=== PATIENT | female | born 1950 | race Asian ===

== ENCOUNTER → 2016-02-26 | Outpatient (CLI) | payer MEDICARE ==
--- NOTE | 2016-02-26 12:11 | REP ---
Right knee MRI study without contrast: History: Right knee pain. Comparison right knee radiographs are from January 21, 2016. Technique: Sagittal, axial and coronal imaging planes were utilized for T1, proton density and T2-weighted scans obtained in the usual fashion with without fat saturation. MRI findings: There is a moderate to large sized Parr's cyst in the posteromedial popliteal soft tissues. A moderate sized joint effusion is visible in the suprapatellar bursa. Cortical and medullary bone signal intensity are normal. There is no evidence of occult fracture. Anterior and posterior cruciate ligaments have an intact appearance. The patellar and quadriceps tendons are unremarkable. There is no evidence of medial or lateral collateral ligament disruption. There is a focal increase signal intensity at the inferior articular margins of posterior body of the medial meniscus consistent with a posterior body medial meniscal tear. No displaced meniscal material is seen. No lateral meniscal tear is seen. There is some anteromedial subcutaneous edema at the joint line which may reflect soft tissue contusion. There is a edema tracking posteriorly and inferiorly from the Parr's cyst. No vascular abnormality is seen. Impression: 1. Joint effusion and moderate to large multiloculated Parr's cyst with some surrounding edema. Question dissecting Parr's cyst. 2. Soft tissue edema anteriorly and medially at the joint line question soft tissue edema, contusion. 3. Small focal tear posterior body medial meniscus. Signed by Sherif Henao MD 02/26/2016 02:06 P
== END ==
LOC: M RAD 09:43
PROVIDERS: ATTEND Family Medicine
DX: M25.461 Effusion, right knee (principal); M71.21 Synovial cyst of popliteal space [Baker], right knee

== ENCOUNTER → 2016-02-29 | Outpatient (REF) | payer MEDICARE, MEDICAID ==
[2016-02-29 16:46] LABS: ALBUMIN 4.6 GM/DL (3.2-5.2); ALBUMIN/GLOBULIN RATIO 1.28 (1.00-1.93); ALKALINE PHOSPHATASE 67 U/L (45-117); ALT/SGPT 17 U/L (12-78); ANION GAP 9 MEQ/L (8-16); AST/SGOT 12 U/L (15-37); BILIRUBIN,TOTAL 0.8 MG/DL (0.2-1.0); BLOOD UREA NITROGEN 15 MG/DL (7-18); CALCIUM LEVEL 9.5 MG/DL (8.8-10.2); CARBON DIOXIDE LEVEL 28 MEQ/L (21-32); CHLORIDE LEVEL 103 MEQ/L (98-107); CHOLESTEROL LEVEL 201 MG/DL (<200); GLOMERULAR FILTRATION RATE > 60.0 (>45); GLUCOSE, FASTING 85 MG/DL (80-110); POTASSIUM SERUM 4.2 MEQ/L (3.5-5.1); SODIUM LEVEL 140 MEQ/L (136-145); TOTAL PROTEIN 8.2 GM/DL (6.4-8.2); TRIGLYCERIDES LEVEL 277 MG/DL (<150)
[2016-02-29 16:51] LABS: MEAN CORPUSCULAR HEMOGLOBIN 28.9 pg (27.0-33.0); MEAN CORPUSCULAR HGB CONC 33.5 g/dl (32.0-36.5); MEAN CORPUSCULAR VOLUME 86.1 fl (80.0-96.0); RED CELL DISTRIBUTION WIDTH 12.3 % (11.5-14.5); WHITE BLOOD COUNT 7.1 K/mm3 (4.0-10.0)
== END ==
LOC: M SFHCLERA 11:00
PROVIDERS: ATTEND Family Medicine
DX: E78.2 Mixed hyperlipidemia (principal); E55.9 Vitamin D deficiency, unspecified
CPT/HCPCS: 80053; 80061; 82306; 85027; G0463

== ENCOUNTER → 2016-03-20 | Outpatient (CLI) | payer MEDICARE, MEDICAID ==
[2016-03-20 18:50] LABS: CRYSTALS, BODY FLUID NONE SEEN (NONE SEEN); SYNOVIAL FLUID COLOR YELLOW (YELLOW)
[2016-03-20 19:00] LABS: RBC ADVIA BF 0; RBC CALC. BF < 10000 (< 10mm3 cells/uL); WBC ADVIA BF 0.3; WBC CALC. BF 300 cells/uL (0-20)
[2016-03-20 19:01] LABS: BF DIFF IF INDICATED? YES (NO)
[2016-03-20 19:40] LABS: URIC ACID, BODY FLUID 4.7 MG/DL (NOT ESTABLISHED)
[2016-03-20 19:47] LABS: URIC ACID 4.1 MG/DL (2.6-6.0)
[2016-03-20 21:17] LABS: CC BF DIFF EXAM CYTOCENTRIFUGE
[2016-03-20 21:18] LABS: HCT SOURCE OTHER
[2016-03-23 00:06] LABS: Lyme Disease IgG/IgM Antibodie <0.91 ISR (0.00-0.90); Lyme Disease IgM Ab Quantitati <0.80 index (0.00-0.79); SJOGREN'S ANTI SS-A 0.2 AI (0.0-0.9); SJOGREN'S ANTI SS-B <0.2 AI (0.0-0.9)
== END ==
LOC: M LAB 16:54
PROVIDERS: ATTEND Orthopaedic Surgery
DX: M17.11 Unilateral primary osteoarthritis, right knee (principal)

== ENCOUNTER → 2016-04-14 | Outpatient (REF) | payer MEDICARE, MEDICAID ==
[~2016-04-14] MED LIST: ACET-654 PO; AMLO10TA PO; AMLO10TA2 PO; ATOR40TA PO; DULO30CA PO; HYDR25TAB PO; ISOS40TA PO; LISI40TAB PO; MIRA3350 PO; NITR4TASL SL; NORC10TA2 PO; PLAV75TA38 PO; PROA1AER INH; RANI300C PO; TIZA4CAP3 PO
== END ==
LOC: M SFHCLERA 10:48
PROVIDERS: ATTEND Family Medicine
DX: B18.1 Chronic viral hepatitis B without delta-agent (principal)

== ENCOUNTER → 2016-04-14 | Outpatient (CLI) | payer MEDICARE, MEDICAID ==
--- NOTE | 2016-04-14 12:22 | REP ---
Clinical: Hepatitis. Technique: Medina scale ultrasound using curved array transducer. Findings: The liver and pancreas are normal in contour, size, and echogenicity without focal hepatic or pancreatic lesions identified. The gallbladder has been removed and there is compensatory dilatation to the common bile duct measuring 11 mm. The right kidney is normal in reniform shape without hydronephrosis and measures 10.0 x 4.9 x 4.3 cm. No ascites. Visualized portions of the abdominal aorta normal. Impression: Prior cholecystectomy. Otherwise normal right upper quadrant ultrasound. Signed by Florian Suh MD 04/14/2016 12:13 P
== END ==
LOC: M LRY 10:52
PROVIDERS: ATTEND Family Medicine
DX: B18.1 Chronic viral hepatitis B without delta-agent (principal)
CPT/HCPCS: 76705; 86705; 86709; 86803; 87340; 87798; G0463

== ENCOUNTER → 2016-04-17 | Outpatient (CLI) | payer MEDICARE ==
[~2016-04-17] VITALS: Ht 157.5 cm; Wt 58.8 kg
[~2016-04-17] MED LIST changes: +LIDOCAINE 2% INJ 100 MG/5 ML SDV (FOR ANES.) As Ordered ONE; +NS 1,000 ML IV SCH; +PROPOFOL 200 MG/20 ML VIAL As Ordered ONE; +fentaNYL 100 MCG/2 ML INJECTION (J3010) As Ordered ONE
--- NOTE | 2016-04-17 10:17 | ROOR ---
Patient Name: Simona Harris Procedure Date: 04/17/2016 9:56 AM Date of : 1950 Age: 65 Room: [facility] Gender: Female Note Status: Finalized Procedure: Upper GI endoscopy Indications: Heartburn Providers: Thomas ZAMORA MD Referring MD: [facility] [place] [facility] Provider: Medicines: Monitored Anesthesia Care Complications: No immediate complications. Procedure: Pre-Anesthesia Assessment: - The heart rate, respiratory rate, oxygen saturations, blood pressure, adequacy of pulmonary ventilation, and response to care were monitored throughout the procedure. The Endoscope was introduced through the mouth, and advanced to the second part of duodenum. The upper GI endoscopy was accomplished without difficulty. The patient tolerated the procedure well. Findings: The esophagus was normal. The stomach was normal. The examined duodenum was normal. Impression: - Normal esophagus. - Normal stomach. - Normal examined duodenum. - No specimens collected. Recommendation: - Continue present medications. Thomas Zamora MD Thomas ZAMORA MD 04/17/2016 10:17:42 AM This report has been signed electronically. Number of Addenda: 0 Note Initiated On: 04/17/2016 9:56 AM Estimated Blood Loss: Estimated blood loss: none.
--- NOTE | 2016-04-17 10:37 | ROOR ---
Patient Name: Simona Harris Procedure Date: 04/17/2016 9:57 AM Date of : 1950 Age: 65 Room: [facility] Gender: Female Note Status: Finalized Procedure: Colonoscopy Indications: Screening for colorectal malignant neoplasm Providers: Thomas ZAMORA MD Referring MD: [facility], [place] Requesting Provider: Medicines: Monitored Anesthesia Care Complications: No immediate complications. Procedure: Pre-Anesthesia Assessment: - The heart rate, respiratory rate, oxygen saturations, blood pressure, adequacy of pulmonary ventilation, and response to care were monitored throughout the procedure. The Colonoscope was introduced through the anus and advanced to the cecum, identified by appendiceal orifice and ileocecal valve. The colonoscopy was performed without difficulty. The patient tolerated the procedure well. The quality of the bowel preparation was good. Findings: The perianal and digital rectal examinations were normal. (Exam: Complete, Prep: Good or Excellent.) Internal hemorrhoids were found during retroflexion. The hemorrhoids were medium-sized. A 4 mm polyp was found in the sigmoid colon. The polyp was sessile. The polyp was removed with a cold snare. Resection and retrieval were complete. The exam was otherwise without abnormality on direct and retroflexion views. Impression: - Internal hemorrhoids. - One 4 mm polyp in the sigmoid colon, removed with a cold snare. Resected and retrieved. - The examination was otherwise normal on direct and retroflexion views. Recommendation: - If the pathology report reveals adenomatous tissue, then repeat the colonoscopy for surveillance in 5 years. Thomas Zamora MD Thomas ZAMORA MD 04/17/2016 10:36:36 AM This report has been signed electronically. Number of Addenda: 0 Note Initiated On: 04/17/2016 9:57 AM Estimated Blood Loss: Estimated blood loss: none.
[2016-04-17 11:08] VITALS: BP 137/64
== END | disposition home or self-care (01) ==
LOC: M OPP 07:59
PROVIDERS: ATTEND Internal Medicine Gastroenterology
DX: Z12.11 Encounter for screening for malignant neoplasm of colon (principal); K64.8 Other hemorrhoids; D12.5 Benign neoplasm of sigmoid colon; R12 Heartburn; I10 Essential (primary) hypertension; I25.10 Atherosclerotic heart disease of native coronary artery without angina pectoris; J45.909 Unspecified asthma, uncomplicated; E78.5 Hyperlipidemia, unspecified; M79.7 Fibromyalgia; F33.9 Major depressive disorder, recurrent, unspecified; L93.0 Discoid lupus erythematosus; Z86.73 Personal history of transient ischemic attack (TIA), and cerebral infarction without residual deficits; Z88.8 Allergy status to other drugs, medicaments and biological substances; Z88.5 Allergy status to narcotic agent
CPT/HCPCS: 43235; 45385; 88305; 99156; 99157; J3010

== ENCOUNTER → 2016-06-12 | Outpatient (REF) | payer MEDICARE ==
[~2016-06-12] MED LIST changes: -LIDOCAINE 2% INJ 100 MG/5 ML SDV (FOR ANES.) As Ordered ONE; -NS 1,000 ML IV SCH; -PROPOFOL 200 MG/20 ML VIAL As Ordered ONE; -fentaNYL 100 MCG/2 ML INJECTION (J3010) As Ordered ONE
[2016-06-12 15:57] LABS: BASO # 0.1 K/mm3 (0.0-0.2); BASO % 1.2 % (0.0-1.0); EOS # 0.3 K/mm3 (0.0-0.50); EOS % 5.3 % (0.0-3.0); LARGE UNSTAINED CELL # 0.1 K/mm3 (0.0-0.4); LARGE UNSTAINED CELL % 2.3 % (0.0-4.0); LYMPH # 2.8 K/mm3 (1.5-4.5); LYMPH % 46.1 % (24.0-44.0); MEAN CORPUSCULAR HEMOGLOBIN 30.2 pg (27.0-33.0); MEAN CORPUSCULAR HGB CONC 34.2 g/dl (32.0-36.5); MEAN CORPUSCULAR VOLUME 88.2 fl (80.0-96.0); MONO # 0.4 K/mm3 (0.0-0.8); MONO % 5.9 % (0.0-5.0); NEUTROPHILS # 2.4 K/mm3 (1.8-7.7); NEUTROPHILS % 39.2 % (36.0-66.0); PLATELET COUNT, AUTOMATED 202 k/mm3 (150-450); RED CELL DISTRIBUTION WIDTH 12.6 % (11.5-14.5)
[2016-06-12 16:00] LABS: INR 0.83
[2016-06-12 16:12] LABS: ALBUMIN 4.1 GM/DL (3.2-5.2); ALBUMIN/GLOBULIN RATIO 1.37 (1.00-1.93); ALKALINE PHOSPHATASE 66 U/L (45-117); ALT/SGPT 25 U/L (12-78); ANION GAP 8 MEQ/L (8-16); AST/SGOT 19 U/L (15-37); BILIRUBIN,TOTAL 0.5 MG/DL (0.2-1.0); BLOOD UREA NITROGEN 11 MG/DL (7-18); CALCIUM LEVEL 9.2 MG/DL (8.8-10.2); CARBON DIOXIDE LEVEL 29 MEQ/L (21-32); CHLORIDE LEVEL 103 MEQ/L (98-107); CREATININE FOR GFR 0.69 MG/DL (0.55-1.02); GLOMERULAR FILTRATION RATE > 60.0 (>45); GLUCOSE, FASTING 88 MG/DL (80-110); POTASSIUM SERUM 3.7 MEQ/L (3.5-5.1); SODIUM LEVEL 140 MEQ/L (136-145); TOTAL PROTEIN 7.1 GM/DL (6.4-8.2)
== END ==
LOC: M SFHCPLAZ 12:44
PROVIDERS: ATTEND Internal Medicine Infectious Disease
DX: B18.1 Chronic viral hepatitis B without delta-agent (principal)
CPT/HCPCS: 36415; 80053; 82105; 85025; 85610; 86707; 86708; 87350; 87517; G0463

== ENCOUNTER → 2018-01-14 | Outpatient (CLI) | payer MEDICAID, MEDICARE ==
[~2018-01-14] MED LIST changes: -ACET-654 PO; +ACET1TAB55 PO; -AMLO10TA2 PO; +AMLO10TA4 PO; -ATOR40TA PO; +ATOR40TA75 PO; -NORC10TA2 PO; +NORC10TA21 PO; +PLAV1TAB2 PO; -PLAV75TA38 PO; -PROA1AER INH; +PROAAER10 INH; +TIZA4CAP PO; -TIZA4CAP3 PO
[2018-01-14 10:27] LABS: BASO # 0.1 10^3/uL (0.0-0.2); BASO % 0.9 % (0.0-1.0); EOS # 0.2 10^3/uL (0.0-0.50); EOS % 2.2 % (0.0-3.0); HEMOGLOBIN 14.7 g/dl (12.0-15.5); LYMPH # 2.2 10^3/uL (1.5-4.5); LYMPH % 19.9 % (24.0-44.0); MEAN CORPUSCULAR HGB CONC 33.4 g/dl (32.0-36.5); MEAN CORPUSCULAR VOLUME 83.8 fl (80.0-96.0); MONO # 0.6 10^3/uL (0.0-0.8); NEUTROPHILS % 71.6 % (36.0-66.0); PLATELET COUNT, AUTOMATED 265 10^3/uL (150-450); RED BLOOD COUNT 5.25 10^6/uL (4.00-5.40); WHITE BLOOD COUNT 11.1 10^3/uL (4.0-10.0)
[2018-01-14 11:06] LABS: ALBUMIN 4.4 GM/DL (3.2-5.2); ALT/SGPT 35 U/L (12-78); BILIRUBIN,TOTAL 0.9 MG/DL (0.2-1.0); BLOOD UREA NITROGEN 15 MG/DL (7-18); CALCIUM LEVEL 9.8 MG/DL (8.8-10.2); CARBON DIOXIDE LEVEL 27 MEQ/L (21-32); CHLORIDE LEVEL 105 MEQ/L (98-107); CREATININE FOR GFR 0.79 MG/DL (0.55-1.30); FREE T3 3.4 PG/ML (2.2-4.0); FREE T4 0.74 NG/DL (0.76-1.46); GLOMERULAR FILTRATION RATE > 60.0 (>45); GLUCOSE, FASTING 127 MG/DL (70-100); POTASSIUM SERUM 3.6 MEQ/L (3.5-5.1); SODIUM LEVEL 142 MEQ/L (136-145); THYROID STIMULATING HORMONE 0.734 uIU/ML (0.358-3.740); TOTAL 25(OH) VITAMIN D 23.5 NG/ML (30.0-100.0); TOTAL PROTEIN 7.8 GM/DL (6.4-8.2)
[2018-01-14 11:07] LABS: THYROID PEROXIDASE ANTIBODY > 1300.0 U/ML (<60.0)
[2018-01-19 08:06] LABS: ALUMINUM LEVEL 4 ug/L (0-9); T3 REVERSE 14.1 ng/dL (9.2-24.1); THRYOGLOBULIN ANTIBODIES (ATA) 111.7 IU/mL (0.0-0.9); THYROGLOBULIN RIA 18 ng/mL (.)
== END ==
LOC: M LAB 09:27
PROVIDERS: ATTEND Nurse Practitioner Pediatrics
DX: F43.10 Post-traumatic stress disorder, unspecified (principal); G47.00 Insomnia, unspecified

== ENCOUNTER → 2018-02-25 | Outpatient (CLI) | payer MEDICARE ==
[~2018-02-25] MED LIST changes: -AMLO10TA4 PO; +AMLO10TA5 PO; +LISI40TA PO; -LISI40TAB PO
[2018-02-25 13:38] LABS: FREE T3 4.4 PG/ML (2.2-4.0); FREE T4 0.76 NG/DL (0.76-1.46); TOTAL 25(OH) VITAMIN D 27.9 NG/ML (30.0-100.0)
== END ==
LOC: M LAB 12:30
PROVIDERS: ATTEND Nurse Practitioner Pediatrics
DX: E03.9 Hypothyroidism, unspecified (principal); E55.9 Vitamin D deficiency, unspecified; F43.10 Post-traumatic stress disorder, unspecified; G47.00 Insomnia, unspecified; M25.511 Pain in right shoulder

== ENCOUNTER → 2018-02-25 | Outpatient (CLI) | payer MEDICARE ==
--- NOTE | 2018-02-26 02:44 | REP ---
Clinical: Right shoulder pain . Technique: Internal rotation, external rotation, and Y view. Findings: No acute fracture or dislocation. The acromioclavicular and glenohumeral joints are intact. No periarticular calcifications or degenerative changes are appreciated. Sub acromial space is normal. Surrounding soft tissues are unremarkable. Impression: Normal right shoulder radiographs. Electronically Signed by Florian Suh MD 02/26/2018 02:35 A
== END ==
LOC: M RAD 11:46
PROVIDERS: ATTEND Nurse Practitioner Family
DX: M25.511 Pain in right shoulder (principal)

== ENCOUNTER → 2018-04-18 | Outpatient (REF) | payer MEDICARE ==
[2018-04-18 18:38] LABS: HEMATOCRIT 38.4 % (36.0-47.0); HEMOGLOBIN 12.7 g/dl (12.0-15.5); MEAN CORPUSCULAR HEMOGLOBIN 27.6 pg (27.0-33.0); MEAN CORPUSCULAR HGB CONC 33.1 g/dl (32.0-36.5); MEAN CORPUSCULAR VOLUME 83.5 fl (80.0-96.0); PLATELET COUNT, AUTOMATED 262 10^3/uL (150-450); WHITE BLOOD COUNT 7.8 10^3/uL (4.0-10.0)
[2018-04-18 18:58] LABS: PARTIAL THROMBOPLASTIN TIME 30.6 SECONDS (25.4-37.6); PROTHROMBIN TIME 13.3 SECONDS (12.1-14.4)
[2018-04-18 19:06] LABS: APPEARANCE, URINE HAZY (CLEAR); BACTERIA, URINE AUTO NEGATIVE (NEGATIVE); BILIRUBIN, URINE AUTO NEGATIVE (NEGATIVE); BLOOD, URINE BLOOD NEGATIVE (NEGATIVE); CALCIUM OXALATE CRYSTALS MODERATE; COLOR, URINE YELLOW (YELLOW); GLUCOSE, URINE (UA) AUTO NEGATIVE (NEGATIVE); KETONE, URINE AUTO NEGATIVE (NEGATIVE); LEUKOCYTE ESTERASE, URINE AUTO 2+ (NEGATIVE); MUCUS, URINE SMALL (NEGATIVE); NITRITE, URINE AUTO NEGATIVE (NEGATIVE); PROTEIN, URINE AUTO 1+ mg/dL (NEGATIVE); RBC, URINE AUTO 3 /HPF (0-3); SPECIFIC GRAVITY URINE AUTO 1.027 (1.002-1.035); SQUAMOUS EPITHELIAL CELL UR AU 4 /HPF (0-6); WBC, URINE AUTO 8 /HPF (0-3)
[2018-04-18 19:16] LABS: ALBUMIN 3.9 GM/DL (3.2-5.2); ALT/SGPT 27 U/L (12-78); BILIRUBIN,TOTAL 0.4 MG/DL (0.2-1.0); BLOOD UREA NITROGEN 17 MG/DL (7-18); CALCIUM LEVEL 9.6 MG/DL (8.8-10.2); CARBON DIOXIDE LEVEL 28 MEQ/L (21-32); CHLORIDE LEVEL 106 MEQ/L (98-107); CREATININE FOR GFR 0.75 MG/DL (0.55-1.30); GLOMERULAR FILTRATION RATE > 60.0 (>45); GLUCOSE, FASTING 94 MG/DL (70-100); POTASSIUM SERUM 3.8 MEQ/L (3.5-5.1); SODIUM LEVEL 143 MEQ/L (136-145); TOTAL PROTEIN 7.1 GM/DL (6.4-8.2)
[2018-04-19 10:07] LABS: HEPATITIS C VIRUS ABY INDEX < 0.0 INDEX (<0.8); HIV 1&2 SCREEN CENTAUR NEGATIVE (NEGATIVE)
== END ==
LOC: M SFHCPLAZ 15:32
DX: B18.1 Chronic viral hepatitis B without delta-agent (principal); M32.9 Systemic lupus erythematosus, unspecified
CPT/HCPCS: 80053; 81001; 82105; 85027; 85610; 85730; 86803; 87389; G0463

== ENCOUNTER → 2018-05-24 | Outpatient (REF) | payer MEDICARE ==
[~2018-05-24] MED LIST changes: -DULO30CA PO; +DULO30CA9 PO; -NORC10TA21 PO; +NORC1TAB5 PO
[2018-05-24 16:48] LABS: FREE T4 0.97 NG/DL (0.76-1.46); THYROID STIMULATING HORMONE 0.117 uIU/ML (0.358-3.740)
== END ==
LOC: M SFHCPLAZ 14:55
DX: E06.3 Autoimmune thyroiditis (principal)
CPT/HCPCS: 84439; 84443; G0463

== ENCOUNTER → 2018-09-06 | Outpatient (REF) | payer MEDICARE ==
[2018-09-06 18:41] LABS: FREE T4 0.67 NG/DL (0.76-1.46); THYROID STIMULATING HORMONE 0.853 uIU/ML (0.358-3.740)
== END ==
LOC: M SFHCPLAZ 15:07
DX: E06.3 Autoimmune thyroiditis (principal)
CPT/HCPCS: 36415; 84439; 84443; 93005; G0463

== ENCOUNTER → 2018-09-16 | Outpatient (CLI) | payer MEDICARE ==
--- NOTE | 2018-09-16 10:19 | REP ---
Clinical: Chronic hepatitis B. Technique: Real time tomas scale and color evaluation using curved array transducer. Findings: Liver and visualized pancreas are normal in contour, size, echogenicity without focal hepatic or pancreatic lesion identified. Evidence for prior cholecystectomy noted with compensatory biliary ductal dilatation. Common bile duct measures 13.4 mm diameter. Right kidney is normal in reniform shape without hydronephrosis and measures 10.7 x 5.7 x 4.6 cm. The no ascites. Impression: Cholecystectomy with compensatory biliary ductal dilatation.
== END ==
LOC: M WHC 07:57
PROVIDERS: ATTEND Internal Medicine
DX: B18.1 Chronic viral hepatitis B without delta-agent (principal)

== ENCOUNTER 2020-03-26 09:55 | Emergency (ER) | payer MEDICARE, OTHER ==
[~2020-03-26] VITALS: Ht 157.5 cm; Wt 61.1 kg
[~2020-03-26 09:55] MED LIST changes: -AMLO10TA5 PO; +AMLO1TAB25 PO; +HYDR-3490 PO; -HYDR25TAB PO; -LISI40TA PO; +LISI40TA4 PO
--- OUTSIDE RECORDS SUMMARY | 2020-03-26 10:06 | CCD ---
Author Author [facility] Organization [facility] Address Unknown Phone Unavailable Support Name Relationship Address Phone JOSTIN CALDERA Next Of Kin - [place] [id number] [place] Next Of Kin [address] [place] [place] [id number] DISABLED Next Of Kin Unknown Unavailable IKE H[place] Next Of Kin [address] [address] [place] [id number] HARRY RAMIRESA Next Of Kin Unknown [place] Next Of Kin [address] [facility] [address] [place] [address] UE Next Of Kin Unknown Unavailable DISABILITY Next Of Kin [place] [id number] UNEMPLOYED Next Of Kin Unknown Unavailable SUKI [place] Next [place] Kin [address] [place] [address] JANETLAWIKE Next Of Kin Unknown MISAELAPLAWIKE Next Of Kin [address] [place] [address] ike hale ECON Unknown Unavailable Re-disclosure Warning The records that you are about to access may contain information from federally-assisted alcohol or drug abuse programs. If such information is present, then the following federally mandated warning applies: This information has been disclosed to you from records protected by federal confidentiality rules (42 CFR part 2). The federal rules prohibit you from making any further disclosure of this information unless further disclosure is expressly permitted by the written consent of the person to whom it pertains or as otherwise permitted by 42 CFR part 2. A general authorization for the release of medical or other information is NOT sufficient for this purpose. The Federal rules restrict any use of the information to criminally investigate or prosecute any alcohol or drug abuse patient.The records that you are about to access may contain highly sensitive health information, the redisclosure of which is protected by Article 27-F of the [facility] Public Health law. If you continue you may have access to information: Regarding HIV / AIDS; Provided by facilities licensed or operated by the [facility] Office of Mental Health; or Provided by the [facility] Office for People With Developmental Disabilities. If such information is present, then the following [facility] mandated warning applies: This information has been disclosed to you from confidential records which are protected by state law. State law prohibits you from making any further disclosure of this information without the specific written consent of the person to whom it pertains, or as otherwise permitted by law. Any unauthorized further disclosure in violation of state law may result in a fine or correction sentence or both. A general authorization for the release of medical or other information is NOT sufficient authorization for further disc losure. Family History Family Member Name Family Member Gender Family Member Status Date o f Status Description Data Source(s) Unknown Female Problem [facility] ([facility]) Unknown Female Problem [facility] ([facility]) Unknown Female Problem [facility] ([facility]) Unknown Female Problem [facility] ([facility]) Unknown Female Problem [facility] ([facility]) Unknown Female Problem [facility] ([facility]) Unknown Female Problem [facility] ([facility]) Unknown Female Problem [facility] ([facility]) Unknown Unknown Problem [facility] ([facility], ) Unknown Unknown Problem [facility] ([facility], ) Unknown Unknown Problem [facility] ([facility], ) Unknown Unknown Problem [facility] ([facility], ) Insurance Providers Payer name Policy type / Coverage type Policy ID Covered green party ID Covered green party's relationship to garnett Policy Garnett Plan Information [facility] [id number] SP [id number] ANSI-Medicare Part B [id number] ANSI-Medicaid [id number] ANSI-Not a Secondary Insurance [id number] ANSI-Health Maintenance Organization ( O) [id number] ANSI-Not a Secondary Insurance [id number] ANSI-Medicaid [id number] ANSI-Health Maintenance Organization ( O) [id number] ANSI-Medicare Part B [id number] ANSI-Medicare Part B [id number] ANSI-Not a Secondary Insurance [id number] ANSI-Medicaid [id number] ANSI-Health Maintenance Organization ( O) [id number] [facility] [id number] SP [id number] [facility] [id number] SP [id number] ANSI-Not a Secondary Insurance [id number] ANSI-Medicaid [id number] ANSI-Medicare Part B [id number] ANSI-Health Maintenance Organization ( O) [id number] ANSI-Not a Secondary Insurance [id number] ANSI-Medicare Part B [id number] ANSI-Medicaid [id number] ANSI-Health Maintenance Organization ( O) [id number] ANSI-Not a Secondary Insurance [id number] ANSI-Medicaid [id number] ANSI-Medicare Part B [id number] ANSI-Health Maintenance Organization ( O) [id number] ANSI-Not a Secondary Insurance [id number] ANSI-Medicare Part B [id number] ANSI-Medicaid [id number] ANSI-Health Maintenance Organization ( O) [id number] ANSI-Medicaid [id number] ANSI-Health Maintenance Organization ( O) [id number] ANSI-Not a Secondary Insurance [id number] ANSI-Medicare Part B [id number] MEDICAID [id number] SP [id number] [employer] MCRHMO [id number] SP [id number] MEDICARE [id number] SP [id number] A [facility] UNITED MEDICARE DUAL G [id number] Self [id number] MEDICAID M [id number] Self [id number] UNITED HE[employer]CARE MCRHMO [id number] SP [id number] MEDICAID [id number] SP [id number] UNITED HE[employer]CARE MCRHMO [id number] SP [id number] UNITED HE[employer]CARE MCRHMO [id number] SP [id number] UNITED HE[employer]CARE MCRHMO [id number] SP [id number] Medicaid [place] Medigap Part B Self [employer] (Medicare) Commercial [place] Dual Complete [place] f [place] Dual Complete [employer] Sindi/MCR Health Maintenance Organization (HMO) Self UNITED HEALTHCARE(MCAID) O [id number] S [id number] UNITED HE[employer]CARE MCRHMO [id number] SP [id number] MEDICAID M [id number] S [id number] [employer] MCDHMO [id number] SP [id number] MEDICAID [id number] Cecilia [id number] [facility] MEDICARE [id number] Cecilia [id number] [facility] UNITED MEDICARE DUAL G [id number] Self [id number] UNITED HE[employer]CARE(MCAID) O [id number] S [id number] MEDICARE C [id number] S [id number] UNITED HE[employer]CARE(MCAID) O [id number] S [id number] MEDICAID-O/P [id number] MEDICAID M [id number] Self [id number] MEDICAID - O/P EMERGENCY ROOM [id number] MEDICAID - CLINIC [id number] MEDICAID W [id number] S [id number] MEDICAID-O/P [id number]
--- NOTE | 2020-03-26 10:31 | REP ---
INDICATION: head injury, blood thinner. COMPARISON: Comparison head CT study May 13, 2015.. TECHNIQUE: Helical scanning is acquired. 5 mm axial images were reformatted. Coronal MPR images were generated. FINDINGS: Bone window settings demonstrate an intact bony calvarium. There is no evidence of skull fracture or incidental bony calvarial lesion. The visualized paranasal sinuses appear clear. No intraorbital abnormality is seen. On soft tissue window setting images; the lateral, third, and fourth ventricles are normal in size and position. Medina-white differentiation pattern is normal above and below the tentorium. There are is no evidence of intracranial hemorrhage. No mass, edema, infarction, or midline shift is seen. No extra-axial fluid collection is appreciated. Vascular calcification is seen at the skull base as before. There are physiologic calcifications in the basal ganglia unchanged. IMPRESSION: Minimal generalized volume loss and vascular calcification. No acute intracranial abnormality. No change from comparison CT study May 13, 2015.. <Electronically signed by Bull Henao > 03/26/20 1028
--- NOTE | 2020-03-26 10:35 | REP ---
INDICATION: head injury, blood thinner. COMPARISON: None. TECHNIQUE: Helical scanning is acquired and overlapping 2 mm high resolution axial images were generated and reviewed at bone and soft tissue window settings. Coronal and sagittal multiplanar re-formations images are generated. FINDINGS: There is no evidence of cervical spine element fracture. No skull base fracture is seen. Cervical vertebral body heights are preserved. Alignment is normal. Facet joints are normally aligned bilaterally at each cervical level on multiplanar re-formations images. There is no evidence of intraspinal or paraspinal hematoma. No extra vertebral abnormality is seen. There is slight straightening. Mild degenerative disc disease is seen at C5-6 with left-sided minimal uncovertebral spurring unchanged. There is a Schmorl's node at the inferior endplate of the T1 vertebral body also unchanged from the December 30, 2015 prior study. There are mild osteoarthritic facet changes. There is a stent in the internal carotid artery on each side. IMPRESSION: Mild degenerative spondylosis. Bilateral internal carotid artery stents noted in place. No traumatic abnormality noted. <Electronically signed by Bull Henao > 03/26/20 1032
[2020-03-26 11:20] LABS: BASO # 0.1 10^3/uL (0.0-0.2); BASO % 1.2 % (0.0-1.0); EOS # 0.1 10^3/uL (0.0-0.5); EOS % 2.1 % (0.0-3.0); HEMATOCRIT 43.4 % (36.0-47.0); HEMOGLOBIN 14.2 g/dl (12.0-15.5); LYMPH # 1.6 10^3/uL (1.5-5.0); LYMPH % 25.7 % (24.0-44.0); MEAN CORPUSCULAR HEMOGLOBIN 28.3 pg (27.0-33.0); MEAN CORPUSCULAR HGB CONC 32.7 g/dl (32.0-36.5); MEAN CORPUSCULAR VOLUME 86.5 fl (80.0-96.0); MONO # 0.4 10^3/uL (0.0-0.8); MONO % 7.2 % (0.0-5.0); NEUTROPHILS # 3.9 10^3/uL (1.5-8.5); NEUTROPHILS % 63.3 % (36.0-66.0); PLATELET COUNT, AUTOMATED 226 10^3/uL (150-450); RED BLOOD COUNT 5.02 10^6/uL (4.00-5.40); WHITE BLOOD COUNT 6.1 10^3/uL (4.0-10.0)
[2020-03-26 11:30] LABS: INR 0.94; PROTHROMBIN TIME 12.8 SECONDS (12.5-14.3)
[2020-03-26 11:31] LABS: PARTIAL THROMBOPLASTIN TIME 27.6 SECONDS (24.2-38.5)
[2020-03-26 11:55] LABS: ALT/SGPT 25 U/L (12-78); BLOOD UREA NITROGEN 12 MG/DL (7-18); CALCIUM LEVEL 9.5 MG/DL (8.8-10.2); CARBON DIOXIDE LEVEL 28 MEQ/L (21-32); CHLORIDE LEVEL 105 MEQ/L (98-107); CREATININE FOR GFR 0.78 MG/DL (0.55-1.30); GLOMERULAR FILTRATION RATE > 60.0 (>39); GLUCOSE, FASTING 154 MG/DL (70-100); POTASSIUM SERUM 3.7 MEQ/L (3.5-5.1); SODIUM LEVEL 139 MEQ/L (136-145); THYROID STIMULATING HORMONE 0.628 uIU/ML (0.358-3.740); TOTAL PROTEIN 7.3 GM/DL (6.4-8.2)
[2020-03-26] MEDS ORDERED: ISOVUE-370 76% 100ML VIAL As Ordered ONE (11:56)
--- NOTE | 2020-03-26 12:37 | REP ---
INDICATION: fall. COMPARISON: Comparison is made with images from CT abdomen November 03, 2015.. TECHNIQUE: Helical scanning is acquired after the intravenous injection of 100 mL of Isovue 370. 3 mm axial images re-formatted. Coronal and sagittal MPR images are generated. FINDINGS: Preliminary digital event security officer radiograph demonstrates an S-shaped thoracic scoliotic curve. The lungs are well inflated. There is minimal linear fibrosis in the right lower lobe and in the lingula at the left lung base. There is no evidence of pulmonary nodule or mass lesion. No contusion or infiltrate is seen. No hemothorax or pneumothorax is seen. Mediastinum shows no evidence of hematoma. The ascending aorta is somewhat dilated measuring 4.2 cm in AP dimension at the level of the right main pulmonary artery. Vascular calcification is noted. No evidence of aortic dissection or injury. Normal adrenal glands. There is fatty infiltration of the liver. There is a cyst partially seen in the upper pole the left kidney. Left coronary artery vascular calcification is seen. No fracture is noted. IMPRESSION: Mild bibasilar lung fibrosis. Vascular calcification. Thoracic scoliosis. No traumatic abnormality noted. <Electronically signed by Bull Henao > 03/26/20 [id number]
--- NOTE | 2020-03-26 12:40 | REP ---
INDICATION: fall. COMPARISON: There is a comparison CT study abdomen and pelvis dated November 03, 2015.. TECHNIQUE: Helical scanning was acquired and 4 mm axial images are re-formatted. Coronal and sagittal MPR images were generated and reviewed. The contrast enhancement dose is 100 mL of intravenous Isovue 370. FINDINGS: Preliminary digital trimmer tailer radiograph shows clips in right upper quadrant. There is fatty infiltration of the liver diffusely. The common hepatic and common bile ducts are somewhat prominent post cholecystectomy measuring 9.3 mm. This is unchanged from the prior study.rr there is a simplerrrrrrrrrrrr cyst in the midpole left kidney measuring 5.0 cm in greatest diameter. This is a little larger than on the prior study (4.2 cm). There is a tiny cortical cyst on the right. A smaller cyst 1 cm cyst is seen at the lower pole of the left kidney. There is no evidence of intrarenal mass or hydronephrosis on either side. No hematoma or perinephric streaking is seen. No pancreatic abnormality is observed. Normal adrenal glands are seen. No retroperitoneal hematoma is appreciated. There is mild left colonic diverticulosis without CT evidence of diverticulitis. A normal appendix is seen along the pelvic sidewall. No abdominal wall defect is seen. Bone window settings show no visible fracture. IMPRESSION: No acute or traumatic abnormality seen. Fatty infiltration of the liver. Post cholecystectomy. Renal cysts. Left colonic diverticulosis <Electronically signed by Bull Henao > 03/26/20 [id number]
[2020-03-26] MEDS ORDERED: KETOROLAC 30 MG/ML 1ML VIAL IV ONE (13:30)
--- OUTSIDE RECORDS SUMMARY | 2020-03-26 13:31 | CCD ---
Author Author [facility] Organization [facility] Address Unknown Phone Unavailable Support Name Relationship Address Phone [place] [address] HARRYYOLANDA GamboaIE Next Of Kin [address] [place] [address] DISABLED Next Of Kin Unknown Unavailable VEGA IKE Next Of Kin [address] [place] [address] IKE MISAELAP Next Of Kin Unknown KITACRISTIAN Next Of Kin [address] [facility] [address] [place] [address] UE Next Of Kin Unknown Unavailable [place] [address] UNEMPLOYED Next Of Kin Unknown Unavailable ROSALINO WASHINGTONALDO Next Of Kin [address] [place] [address] MISAELBENNYLAW GamboaSON Next Of Kin Unknown MISAELBENNYIKE Gamboa Next Of Kin [address] [place] [address] vega ike ECON Unknown Unavailable Re-disclosure Warning The records [...] is protected by Article 27-F of the [facility] Public Health law. If you continue you may have access to information: Regarding HIV / AIDS; Provided by facilities licensed or operated by the [facility] Office of Mental Health; or Provided by the [facility] Office for People With Developmental Disabilities. If such information is present, then the following [facility] mandated warning applies: This information [...] law may result in a fine or [place] health [place] sentence or both. A general authorization for the release of medical or other information is NOT sufficient authorization for further disc losure. Family History Family Member Name Family Member Gender Family Member Status Date o f Status Description Data Source(s) Unknown Female Problem [facility] ([facility] ) Unknown Female Problem [facility] ([facility] ) Unknown Female Problem [facility] ([facility] ) Unknown Female Problem [facility] ([facility] ) Unknown Female Problem [facility] ([facility] ) Unknown Female Problem [facility] ([facility] ) [facility] Female Problem [facility] ([facility]) Unknown Female Problem [facility] ([facility]) Unknown Unknown Problem [facility] ([facility], ) Unknown Unknown Problem [facility] ([facility], ) Unknown Unknown Problem [facility] ([facility], ) Unknown Unknown Problem [facility] ([facility], ) Insurance Providers Payer name Policy type / Coverage type Policy ID Covered democrat ID Covered democrat's relationship to garnett Policy Garnett Plan Information [employer] PPO [id number] SP [id number] [facility] [id number] SP [id number] ANSI-Medicare Part B [id number] ANSI-Medicaid [id number] ANSI-Not a Secondary Insurance [id number] ANSI-Health Maintenance Organization ( O) [id number] ANSI-Not a Secondary Insurance [id number] ANSI-Medicaid [id number] ANSI-Health Maintenance Organization ( O) [id number] ANSI-Medicare Part B [id number] ANSI-Medicare Part B [id number] ANSI-Not a Secondary Insurance [id number] ANSI-Medicaid [id number] ANSI-Health Maintenance Organization ( O) [id number] [employer] [id number] SP [id number] WE[employer]ARE [id number] SP [id number] ANSI-Not a Secondary Insurance [id number] ANSI-Medicaid [id number] ANSI-Medicare Part B [id number] ANSI-Health Maintenance Organization ( O) [id number] ANSI-Not a Secondary Insurance [id number] ANSI-Medicare Part B [id number] ANSI-Medicaid [id number] ANSI-Health Maintenance Organization ( O) [id number] ANSI-Not a Secondary Insurance [id number] ANSI-Medicaid [id number] ANSI-Medicare Part B [id number] ANSI-Health Maintenance Organization ( O) [id number] ANSI-Not a Secondary Insurance [id number] ANSI-Medicare Part B [id number] ANSI-Medicaid [id number] ANSI-Health Maintenance Organization ( O) [id number] ANSI-Medicaid [id number] ANSI-Health Maintenance Organization (HM O) [id number] ANSI-Not a Secondary Insurance [id number] ANSI-Medicare Part B [id number] MEDICAID [id number] SP [id number] [facility] [id number] SP [id number] MEDICARE [id number] SP [id number] A [facility] MEDICARE DUAL G [id number] Self [id number] MEDICAID M [id number] Self [id number] [facility] [id number] SP [id number] MEDICAID [id number] SP [id number] [facility] M[facility] [id number] SP [id number] [facility] [id number] SP [id number] [facility] M[facility] [id number] SP [id number] Medicaid [place] Medigap Part B Self [employer] [facility] (Medicare) Commercial [place] Dual Complete Cecilia f [place] Dual Complete [employer] Sindi/MCR Health Maintenance Organization (HMO) Self [facility](MCAID) O [id number] S [id number] [employer] [facility] MCRHMO [id number] SP [id number] MEDICAID M [id number] S [id number] [employer] MCDHMO [id number] SP [id number] MEDICAID [id number] Cecilia [id number] [facility] MEDICARE [id number] Cecilia [id number] [facility] MEDICARE DUAL G [id number] Self [id number] [employer](MCAID) O [id number] S [id number] MEDICARE C [id number] S [id number] [employer](MCAID) O [id number] S [id number] MEDICAID-O/P [id number] MEDICAID M [id number] Self [id number] MEDICAID - O/P EMERGENCY ROOM [id number] MEDICAID - CLINIC [id number] MEDICAID W [id number] S [id number] MEDICAID-O/P [id number]
[2020-03-26 14:00] VITALS: BP 131/77
[2020-03-26] MEDS ORDERED: KETO10TAB PO (15:26)
== END 2020-03-26 16:07 | disposition home or self-care (01) ==
LOC: M ED 09:55
DX: S10.83XA Contusion of other specified part of neck, initial encounter (principal); M25.532 Pain in left wrist; S09.90XA Unspecified injury of head, initial encounter; W10.8XXA Fall (on) (from) other stairs and steps, initial encounter; Y92.019 Unspecified place in single-family (private) house as the place of occurrence of the external cause; Y93.9 Activity, unspecified; Y99.9 Unspecified external cause status; K76.0 Fatty (change of) liver, not elsewhere classified; K57.30 Diverticulosis of large intestine without perforation or abscess without bleeding; N28.1 Cyst of kidney, acquired; M47.812 Spondylosis without myelopathy or radiculopathy, cervical region; J84.10 Pulmonary fibrosis, unspecified; Z98.62 Peripheral vascular angioplasty status; I10 Essential (primary) hypertension; M79.7 Fibromyalgia; B19.10 Unspecified viral hepatitis B without hepatic coma; Z79.899 Other long term (current) drug therapy; Z88.8 Allergy status to other drugs, medicaments and biological substances
CPT/HCPCS: 70450; 71260; 72125; 74177; 80053; 84443; 85025; 85610; 85730; 96374; 99284; J1885; Q9967

== ENCOUNTER → 2021-12-07 | Outpatient (CLI) | payer MEDICARE ==
[~2021-12-07] MED LIST changes: +KETO10TAB PO
== END ==
LOC: M RAD 10:27
PROVIDERS: ATTEND Nurse Practitioner Family
DX: M54.12 Radiculopathy, cervical region (principal); M25.78 Osteophyte, vertebrae; M51.27 Other intervertebral disc displacement, lumbosacral region